=== PATIENT | female | born 1995 | race Caucasian/White ===

== ENCOUNTER 2020-12-21 21:34 | Emergency (ER) | payer OTHER ==
[~2020-12-21] VITALS: Ht 172.7 cm; Wt 77.1 kg
[2020-12-21 22:19] LABS: HEMOGLOBIN 13.7 gm/dl (12.3-15.3); RED BLOOD COUNT 4.81 M/UL (4.00-5.10); WHITE BLOOD COUNT 8.8 K/UL (4.5-11.0)
[2020-12-21 22:59] LABS: BUN/CREATININE RATIO 13 (0-10)
[2020-12-22] MEDS ORDERED: ZOFRAN ODT 4 MG4 MG SL (00:25)
== END 2020-12-22 08:45 | disposition home or self-care (01) ==
LOC: ER1 21:34 → CDU 12-22 00:42 → ER1 12-22 00:42 → CDU 12-22 08:45
PROVIDERS: Emergency Medicine; Physician Assistant
DX: S09.90XA Unspecified injury of head, initial encounter (principal); R11.2 Nausea with vomiting, unspecified; R41.3 Other amnesia; Z20.822 Contact with and (suspected) exposure to COVID-19; Z90.89 Acquired absence of other organs; Z88.2 Allergy status to sulfonamides; W22.8XXA Striking against or struck by other objects, initial encounter; Y92.009 Unspecified place in unspecified non-institutional (private) residence as the place of occurrence of the external cause
CPT/HCPCS: 70450; 70496; 70498; 71045; 72125; 80053; 80307; 81001; 82550; 82553; 83874; 84484; 84703; 85025; 87086; 93005; 96374; 96375; 96376; 99284; J2270; J2405; Q9967; U0002